=== PATIENT | female | born 1960 | race Caucasian/White ===

== ENCOUNTER → 2018-01-21 | Outpatient (CLI) | payer OTHER ==
[~2018-01-21] MED LIST: CENTRUM MULTIV1 EACH PO; DIATRIZOATE MEGL/DIATRIZOA SOD 30 ML BTL PO ONE; LISINOPRIL PO; MONTELUKAST SOD10 MG; MOTRIN600 MG; [UNRECOGNIZED DRUG - OTHER]
[2018-01-21 13:59] LABS: BLOOD UREA NITROGEN 8 mg/dL (7-26); BUN/CREATININE RATIO 11 (6-25); EST GLOMERULAR FILTRATION RATE > 60 ML/MIN (60-)
--- NOTE | 2018-01-21 14:49 | Diagnostic Imaging Report ---
PROCEDURE: CT ABDOMEN AND PELVIS WITH CONTRAST TECHNIQUE: The abdomen and pelvis were scanned utilizing a multidetector helical scanner from the diaphragm to the lesser trochanter after the IV administration of 100 cc of Isovue 370 and the oral administration of Gastroview. Coronal and sagittal multiplanar reformations were obtained. DLP: 886.17 mGy-cm COMPARISON: None. INDICATIONS: GENERALIZED ABDOMINAL PAIN FINDINGS: LOWER THORAX: Normal. HEPATOBILIARY: Hepatic steatosis. Liver is enlarged measuring 19.2 cm in length. No focal hepatic lesions. No biliary ductal dilatation. Cholecystectomy. SPLEEN: No splenomegaly. PANCREAS: No focal masses or ductal dilatation. ADRENALS: No adrenal nodules. KIDNEYS/URETERS: No hydronephrosis, stones, or solid mass lesions. PELVIC ORGANS/BLADDER: Hysterectomy. No adnexal masses. PERITONEUM / RETROPERITONEUM: No free air or fluid. LYMPH NODES: No lymphadenopathy. VESSELS: Unremarkable. GI TRACT: A 1.1 cm rounded soft tissue density lesion in the region of the anterior wall of the first duodenal segment (series 2 image 34). Sigmoid colonic diverticula with diverticular thickening and peridiverticular stranding in the sigmoid colon (series 2 image 73, coronal image 65). No abscess. No distention or additional wall thickening. BONES AND SOFT TISSUES: Unremarkable. IMPRESSION: 1. Findings suggestive of acute uncomplicated diverticulitis of the sigmoid colon. Given history of colon neoplasm resection, recommend either follow up CT after resolution of symptoms or correlation with colonoscopy. 2. Submucosal 1.1 cm solid lesion along anterior wall of the first duodenal segment is indeterminate but could represent a GIST or ectopic pancreatic rest. Recommend GI consultation. 3. Hepatic steatosis and hepatomegaly. Dictated by: Laith Mcfarlane M.D. on 01/21/2018 at 14:50 Electronically approved by: Laith Mcfarlane M.D. on 01/21/2018 at 14:50
== END ==
LOC: CT 12:58
PROVIDERS: ATTEND Family Medicine
DX: R10.84 Generalized abdominal pain (principal); R11.0 Nausea; D72.829 Elevated white blood cell count, unspecified
CPT/HCPCS: 36415; 74177; 82565; 84520

== ENCOUNTER → 2018-02-13 | Day surgery (SDC) | payer OTHER ==
[~2018-02-13] MED LIST changes: -DIATRIZOATE MEGL/DIATRIZOA SOD 30 ML BTL PO ONE; +MIDAZOLAM HCL 2 MG/2 ML VIAL ONE; -MONTELUKAST SOD10 MG; +MONTELUKAST SOD10 MG PO; +PROPOFOL IV EMULSION 10 MG/ML 50 ML VIAL ONE; +ZESTRIL20 MG PO
--- OUTSIDE RECORDS SUMMARY | 2018-02-13 08:21 | XMS REPORT ---
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 Allergies, Adverse Reactions, Alerts This patient has no known allergies or adverse reactions. Medications This patient has no known medications. Results Test Description Test Time Test Comments Text Results Atomic Results Result Comments CT ABDOMEN/PELVIS [place] [address] Patient Name: DEBORAH GRADY MR #: [id number] : 1960 Age/Sex: 57/F Req #: [id number] Adm Physician: Ordered by: RUTHANN ROSENBAUM DO Report #: [id number] Location: CT Room/Bed: Procedure: [id number] CT/CT ABDOMEN/PELVIS W Exam Date: 01/21/18 Exam Time: 1350 REPORT STATUS: Signed PROCEDURE: CT ABDOMEN AND PELVIS WITH CONTRAST TECHNIQUE: The abdomen and pelvis were scanned utilizing a multidetector helical scanner from the diaphragm to the lesser trochanter after the IV administration of 100 cc of Isovue 370 and the oral administration of Gastroview. Coronal and sagittal multiplanar reformations were obtained. DLP: 886.17 mGy-cm COMPARISON: None. INDICATIONS: GENERALIZED ABDOMINAL PAIN FINDINGS: LOWER THORAX: Normal. HEPATOBILIARY: Hepatic steatosis. Liver is enlarged measuring 19.2 cm in length. No focal hepatic lesions. No biliary ductal dilatation. Cholecystectomy. SPLEEN: No splenomegaly. PANCREAS: No focal masses or ductal dilatation. ADRENALS: No adrenal nodules. KIDNEYS/URETERS: No hydronephrosis, stones, or solid mass lesions. PELVIC ORGANS/BLADDER: Hysterectomy. No adnexal masses. PERITONEUM / RETROPERITONEUM: No free air or fluid. LYMPH NODES: No lymphadenopathy. VESSELS: Unremarkable. GI TRACT: A 1.1 cm rounded soft tissue density lesion in the region of the anterior wall of the first duodenal segment (series 2 image 34). Sigmoid colonic diverticula with diverticular thickening and peridiverticular stranding in the sigmoid colon (series 2 image 73, coronal image 65). No abscess. No distention or additional wall thickening. BONES AND SOFT TISSUES: Unremarkable. IMPRESSION: 1. Findings suggestive of acute uncomplicated diverticulitis of the sigmoid colon. Given history of colon neoplasm resection, recommend either follow up CT after resolution of symptoms or correlation with colonoscopy. 2. Submucosal 1.1 cm solid lesion along anterior wall of the first duodenal segment is indeterminate but could represent a GIST or ectopic pancreatic rest. Recommend GI consultation. 3. Hepatic steatosis and hepatomegaly. Dictated by: Laith Akhtar M.D. on 01/21/2018 at 14:50 Electronically approved by: Laith Akhtar M.D. on 01/21/2018 at 14:50 Dictated By: LAITH AKHTAR MD [id number] COPY TO: RUTHANN ROSENBAUM DO
--- NOTE | 2018-02-13 13:35 | Operative Report ---
DATE OF PROCEDURE: February 13, 2018 REFERRING PHYSICIAN: Dr. Radha Rosenbaum. PROCEDURE PERFORMED: Esophagogastroduodenoscopy with biopsies. INDICATIONS FOR PROCEDURE: Abnormal CT of abdomen, nodule in duodenal bulb. MEDICATION: Patient was done under MAC. Please see anesthesiologist's note. PROCEDURE: With the patient in the left lateral decubitus position, the flexible fiberoptic Olympus gastroscope was introduced into the esophagus under direct visualization without any difficulty. There was some patchy erythema noted in the distal esophagus. An erosion was noted in the distal esophagus also. The scope was then advanced with ease into the stomach, and the mucosa overlying the antrum and the body revealed some diffuse erythema and low-grade to moderate edema, and biopsies were obtained and sent to stain for H. pylori. Pylorus appeared to be of normal contour and shape, was intubated with ease, and the scope was advanced all the way to the 2nd portion of the duodenum. The mucosa overlying the proximal 2nd portion appeared to be within normal limits. Scattered nodularity was noted in the duodenal bulb, with the largest nodule approximately 1 cm in size. Multiple biopsies were obtained. The scope was then withdrawn back into the stomach and retroflexed, and the mucosa overlying the fundus and the cardia appeared to be within normal limits. The scope was then straightened out. The stomach was decompressed. The scope was subsequently withdrawn. Patient tolerated the procedure well. IMPRESSION: 1. Distal erosive esophagitis. 2. Gastritis biopsied. Biopsies sent to stain for H. pylori. 3. Scattered nodules, duodenal bulb, up to 1 cm in size. Biopsies obtained. PLAN: Follow up histology. Initiate Protonix 40 mg 1 p.o. q.a.m. a.c. Job#: [id number] EV cc:RADHA ROSENBAUM DO
== END | disposition home or self-care (01) ==
LOC: OR 08:19
PROVIDERS: ATTEND Internal Medicine Gastroenterology
DX: R93.3 Abnormal findings on diagnostic imaging of other parts of digestive tract (principal); K29.50 Unspecified chronic gastritis without bleeding; K22.10 Ulcer of esophagus without bleeding; K31.89 Other diseases of stomach and duodenum; K57.32 Diverticulitis of large intestine without perforation or abscess without bleeding; J45.909 Unspecified asthma, uncomplicated; E66.01 Morbid (severe) obesity due to excess calories; I10 Essential (primary) hypertension; Z88.1 Allergy status to other antibiotic agents; Z88.5 Allergy status to narcotic agent; Z01.810 Encounter for preprocedural cardiovascular examination; Z68.42 Body mass index [BMI] 45.0-49.9, adult
CPT/HCPCS: 43239; 93005; J2250

== ENCOUNTER → 2018-07-29 | Outpatient (CLI) | payer OTHER ==
[~2018-07-29] MED LIST changes: -MIDAZOLAM HCL 2 MG/2 ML VIAL ONE; -PROPOFOL IV EMULSION 10 MG/ML 50 ML VIAL ONE
--- NOTE | 2018-07-29 16:33 | Diagnostic Imaging Report ---
EXAMINATION: Right upper quadrant ultrasound CLINICAL INDICATION: Fatty liver COMPARISON: CT abdomen and pelvis with contrast 01/21/2018 DISCUSSION: Transverse and longitudinal images of the right upper quadrant were obtained. The liver is increased in size measuring 15.2centimeters in length in the right midclavicular line and shows increased echogenicity. No focal masses are seen in the liver. There is no intrahepatic biliary dilatation. The common bile duct measures 1 cm in caliber. The main portal vein is normal in caliber and measures 0.9 centimeters with normal hepatopetal flow. The gallbladder has been removed. The visualized portions of the pancreatic body are unremarkable. The right kidney measures 11.6 centimeters in length. There is normal renal cortical echogenicity and no hydronephrosis, mass or shadowing calculi. Abdominal aorta is nonaneurysmal. IVC is patent. No free fluid is seen. IMPRESSION: Hepatic steatosis. Prominence of the common bile duct is unchanged relative to comparison CT and is likely related to reservoir effect in this patient status post cholecystectomy. Signed by: Dr. Israel Obrien M.D. on 07/29/2018 4:30 PM
== END ==
LOC: US 15:29
PROVIDERS: ATTEND Internal Medicine Gastroenterology
DX: K76.0 Fatty (change of) liver, not elsewhere classified (principal)
CPT/HCPCS: 76705